=== PATIENT | male | born 1945 | race Two or more races ===

== ENCOUNTER 2021-05-31 06:20 | Day surgery (SDC) | payer OTHER ==
[~2021-05-31 06:20] MED LIST: ATORVASTATIN CA80 MG PO; CARVEDILOL6.25 MG; CILOSTAZOL100 MG PO; ECOTRIN81 MG PO; GLIPIZIDE XL10 MG PO; HUMULIN N100 UNIT/2; INVOKANA100 MG PO; LANTUS SOL100 UNIT/1; LASIX20 MG PO; NORVASC10 MG PO; ZESTRIL20 MG PO
== END 2021-05-31 16:30 | disposition home or self-care (01) ==
LOC: CIR.AMB 06:20
PROVIDERS: ATTEND Colon & Rectal Surgery
DX: K64.5 Perianal venous thrombosis (principal); K64.8 Other hemorrhoids; K64.4 Residual hemorrhoidal skin tags; Z20.822 Contact with and (suspected) exposure to COVID-19